=== PATIENT | female | born 1950 | race Two or more races ===

== ENCOUNTER 2022-01-04 21:01 | Observation (INO) | payer MEDICAID ==
[~2022-01-04] VITALS: Ht 170.2 cm; Wt 131.5 kg
--- NOTE | 2022-01-04 21:04 | NUR ---
ERMD AT BEDSIDE
--- NOTE | 2022-01-04 21:04 | NUR ---
PT BIBA AND TO BED AT THIS TIME
[2022-01-04 21:08] VITALS: BP 196/85
[2022-01-04 21:33] LABS: BASOPHILS % (AUTO) 0.5 % (0.0-2.0); EOSINOPHILS # (AUTO) 0.2 K/uL (0-0.4); EOSINOPHILS % (AUTO) 2.1 % (0.0-4.0); HEMOGLOBIN 12.5 g/dL (12.0-16.0); LYMPHOCYTES # (AUTO) 4.5 K/uL (2.5-16.5); LYMPHOCYTES % (AUTO) 54.1 % (20.5-51.1); MEAN CORPUSCULAR HEMOGLOBIN 27 pg (27-31); MEAN CORPUSCULAR HGB CONC 32 g/dL (33-37); MEAN CORPUSCULAR VOLUME 82.6 fL (80-94); MONOCYTES # (AUTO) 0.8 K/uL (0.8-1.0); MONOCYTES % (AUTO) 9.3 % (1.7-9.3); NEUTROPHILS # (AUTO) 2.8 K/uL (1.8-7.7); PLATELET COUNT (AUTO) 293 K/uL (140-450); RED BLOOD CELL COUNT(AUTO) 4.72 MIL/uL (4.20-5.40); RED CELL DISTRIBUTION WIDTH 14.3 % (11.6-13.7); WHITE BLOOD COUNT (AUTO) 8.3 K/uL (4.8-10.8)
[2022-01-04] MEDS ORDERED: hydrALAZINE 20 MG/ML VIAL IVP ONE (21:40)
[2022-01-04 21:45] LABS: PROTHROMBIN TIME 9.9 secs (10.8-13.4)
[2022-01-04 21:51] LABS: LIPASE 213 U/L (73-393)
[2022-01-04 21:54] LABS: ALBUMIN 3.6 g/dL (3.4-5.0); ANION GAP 13.3 (8-16); ASPARTATE AMINOTRANSFERASE 13 U/L (15-37); CARBON DIOXIDE 30.2 mmol/L (21-32); CHLORIDE 103 mmol/L (98-107); CREATININE 1.1 mg/dL (0.6-1.3); GLUCOSE 193 mg/dL (74-106); POTASSIUM 4.5 mmol/L (3.5-5.1); SODIUM SERUM 142 mmol/L (136-145); TOTAL BILIRUBIN 0.2 mg/dL (0.0-1.0); UREA NITROGEN, BLOOD 19 mg/dL (7-18)
--- NOTE | 2022-01-05 | NUR ---
71 YO F BIBA FOR SOB, CHEST PAIN, WEAKNESS X TODAY. PT HAS ALSO HAS INCREASING SWELLING ON BILAT EXTREMITIES. PT DAUGHTER STATED THAT MOTHER LOOKED BLUE IN THE FACE TODAY WELL. PT HAS EXTENSIVE MEDICAL HX. PT IS AMBULATORY WITH ASSIST ONLY. LEGS AND ARMS ARE EDEMATOUS BUT NO PITTING. PT IS A&OX4 BUT SPEAKS ARMENIAN. PT DAUGHTER STATES THAT MOTHER IS COMPLIANT ON MEDICATION RX:SEE MED REC PMH: HTN, DM2, A FIB, CHF, OBESITY
[2022-01-05 00:04] LABS: APPEARANCE,URINE CLOUDY (CLEAR); BILIRUBIN,URINE NEGATIVE (NEGATIVE); BLOOD, URINE TRACE-I (NEGATIVE); COLOR,URINE YELLOW (YELLOW); LEUKOCYTE ESTERASE ,URINE 3+ (NEGATIVE); NITRITE, URINE POSITIVE (NEGATIVE); PH,URINE 6.5 (5.0-9.0); UGLUCOSE NEGATIVE (NEGATIVE)
[2022-01-05 00:13] LABS: RBC,URINE 20-50 /HPF (0-5); YEAST,URINE Rare /HPF (None Seen)
[2022-01-05] MEDS ORDERED: cefTRIAXone 1,000 MG VIAL ONE (00:50)
--- NOTE | 2022-01-05 01:32 | NUR ---
Patient appears to be resting comfortably in bed. Vital Signs within normal limits. Respirations even and unlabored. 97% RA
[2022-01-05] MEDS ORDERED: SITA50TA3 PO (01:48)
[2022-01-05] MEDS ORDERED: [UNRECOGNIZED DRUG - CODE] PO (01:48)
[2022-01-05] MEDS ORDERED: METF-1139 PO (04:08)
[2022-01-05] MEDS ORDERED: METO50TE2 PO (04:08)
[2022-01-05] MEDS ORDERED: LISI5TAB18 PO (04:16)
[2022-01-05] MEDS ORDERED: METF1TAB5 PO (04:16)
--- NOTE | 2022-01-05 07:41 | NUR ---
Patient appears to be resting comfortably in bed. Vital Signs within normal limits. Respirations even and unlabored.
[2022-01-05] MEDS ORDERED: HYDROcodone/APAP 7.5/325 MG 1 TAB PO PRN (08:30)
[2022-01-05] MEDS ORDERED: ZOLPIDEM 5 MG TAB PO PRN (08:30)
[2022-01-05] MEDS ORDERED: ONDANSETRON 4 MG/2 ML VIAL IM/IVP PRN (08:30)
[2022-01-05] MEDS ORDERED: ACETAMINOPHEN 325 MG TAB PO PRN (08:30)
[2022-01-05] MEDS ORDERED: POTASSIUM CHLORIDE 10 MEQ TABER PO PRN (08:30)
[2022-01-05] MEDS ORDERED: DOCUSATE SODIUM 100 MG GELCAP PO PRN (08:30)
[2022-01-05] MEDS ORDERED: guaiFENesin DM 200/20 MG-10 ML 10 ML UDC PO PRN (08:30)
[2022-01-05] MEDS ORDERED: DEXTROSE 50% 50 ML SYR IVP PRN (08:35)
[2022-01-05] MEDS ORDERED: hydrALAZINE 20 MG/ML VIAL IVP PRN (08:35)
[2022-01-05] MEDS ORDERED: lisinopriL 5 MG TAB PO SCH (09:00)
[2022-01-05] MEDS ORDERED: METOPROLOL SUCCINATE 50 MG TABER PO SCH (09:00)
--- NOTE | 2022-01-05 09:06 | NUR ---
pt refusing blood draw at this time
[2022-01-05] MEDS: BLOOD GLUCOSE MONITORING 1 DEV DEV FS SCH ×3 (11:34→21:00)
[2022-01-05] MEDS: INSULIN LISPRO SLIDING SCALE 100 UNITS/ML VIAL SUBQ PRN ×2 (11:48→22:59)
--- NOTE | 2022-01-05 14:06 | NUR ---
PATIENT HAS BEEN SCREENED AND CATEGORIZED MODERATE NUTRITION RISK. PATIENT WILL BE SEEN WITHIN 3-5 DAYS OF ADMISSION. / [address]
--- NOTE | 2022-01-05 15:10 | NUR ---
REPORT RECIEVED FROM CARRIE CHEEMA
--- NOTE | 2022-01-05 15:34 | NUR ---
WHEELCHAIR PT TO BATHROOM. AMBULATE WITH ASSIST
--- NOTE | 2022-01-05 16:15 | NUR ---
ACCU CHECK 113
--- NOTE | 2022-01-05 17:04 | NUR ---
PENDING BED STATUS FOR TELE. PT IS ANXIOUS ABOUT GETTING TO A ROOM. PT IS ON BEDSIDE ELEMENTARY SECRETARY. STATES BEING SOB . SP02 98%RA. HOB ELEVATED. NO DISTRESS NOTED. BATHROOM PRIEGLEVES WITH ASSIST. MILD WEAKNESS. UPPER AND LOWER EXT EDEMATOUS. NON PITTING. HX OF CHF AFIB HTN. DENIES CP. PT IS A&OX4 SPEAKS URDU AND LIMITED PALAUAN. BED AT LOWEST POSITION. SIDE RAILS UP X2
--- NOTE | 2022-01-05 18:30 | NUR ---
P.T. NOTES P.T. EVAL COMPLETED; REFER TO EVAL FOR DETAILS.
--- NOTE | 2022-01-05 19:26 | NUR ---
Pt report given to Alvina ROQUE. Transfer of care at this time.
--- NOTE | 2022-01-05 20:05 | NUR ---
PATIENT WAS BROUGHT TO MST UNIT FROM ER VIA GURNEY AAOX4. NO SOB NOTED. BREATHING REGULAR UNLABORED ON ROOM AIR. ABLE TO AMBULATE WITH ASSIST TO HER BED. IV ACCESS ON THE LEFT FOREARM INTACT AND PATENT. ALL SAFETY PRECAUTIONS ARE IN PLACE. WHEELS OF BED LOCKED. ORIENTED TO ROOM, CALL LIGHT, STAFF. MRSA NARES SCREENING DONE. CALL LIGHT WITHIN REACH. WILL CONTINUE TO MONITOR PT.
--- NOTE | 2022-01-05 21:00 | NUR ---
BLOOD SUGAR WAS 155. ADMINISTERED 2 UNITS HUMALOG ORDERED PER SLIDING SCALE.
--- NOTE | 2022-01-05 22:50 | NUR ---
CHECKED ON PATIENT, RESTING COMFORTABLY IN BED. NO COMPLAINTS OF PAIN AT THIS TIME.
[2022-01-05] MEDS: carvediloL 12.5 MG TAB PO SCH (22:52)
[2022-01-05] MEDS: lisinopriL 10 MG TAB PO SCH (22:53)
[2022-01-06] VITALS: BP 148/67
--- NOTE | 2022-01-06 03:05 | NUR ---
PATIENT SLEEPING IN BED. BREATHING NORMAL. CHEST RISE AND FALL SYMMETRICALLY. CALL LIGHT WITHIN REACH.
[2022-01-06 04:00] VITALS: BP 134/50
[2022-01-06] MEDS: BLOOD GLUCOSE MONITORING 1 DEV DEV FS SCH ×4 (06:49→21:08)
--- NOTE | 2022-01-06 06:50 | NUR ---
BLOOD SUGAR WAS 141, NO INSULIN COVERAGE NEEDED.
--- NOTE | 2022-01-06 07:35 | NUR ---
PATIENT STABLE. ENDORSED TO MORNING SHIFT NURSE FOR CONTINUITY OF CARE.
--- NOTE | 2022-01-06 07:36 | NUR ---
RECEIVED REPORT FROM PARLOR MAID NURSE FOR CONTINUITY OF CARE. PT AWAKE, SITTING IN BED. RESPIRATIONS EVEN AND UNLABORED ON RA. NO DISTRESS NOTED. ON TELE MONITOR. SKIN IS INTACT, WARM AND DRY TO TOUCH. IV SITE AT [facility] 22G, SL. CALL LIGHT WITHIN REACH. SAFETY PRECAUTIONS IN PLACE. WILL CONTINUE TO MONITOR.
[2022-01-06 08:00] VITALS: BP 146/55
--- NOTE | 2022-01-06 08:00 | NUR ---
Patient's Plan of Care was discussed and reviewed with MYA: [id number]
[2022-01-06 09:38] LABS: BARBITURATE, URINE NEGATIVE ng/ml (NEG <=200); BENZODIAZEPINE, URINE NEGATIVE ng/mL (NEG <=200); CANNABINOID, URINE NEGATIVE ng/mL (NEG <=50); COCAINE, URINE NEGATIVE ng/mL (NEG <=300); OPIATE, URINE POSITIVE ng/mL (NEG <=2000); PHENCYCLIDINE SCREEN,URINE NEGATIVE ng/mL (NEG <=25)
[2022-01-06] MEDS: carvediloL 12.5 MG TAB PO SCH ×2 (09:38→21:10)
[2022-01-06] MEDS: lisinopriL 10 MG TAB PO SCH (09:38)
--- NOTE | 2022-01-06 09:46 | NUR ---
DAUGHTER CAME, AT BEDSIDE, UPSET AND WANTS TO SPEAK TO THE HOSPITAL MGR SPECIFICALLY MENTIONED MELYSSA. ANOTHER RN ELIS CAME TO HELP AND SPOKE TO THE DAUGHTER. PER DAUGHTER, HER MOM WAS WET AND PEED ON HER GOWN AND CLOTHES LAST NIGHT, URINE ALL OVER THE FLOOR, KEPT ON CALLING THE CALL LIGHT LAST NIGHT BUT NO ONE RESPONDING TO HER MOM. PT NURSE CALLED DR HICKEY TO INFORM MD THAT THE DAUGHTER IS UPSET, WANTS AN UPDATE ABOUT HER MOM, THAT SHE WANTS TO TRANSFER HER MOM TO ANOTHER HOSPITAL AND THAT SHE WANTS TO TALK TO THE MD. DR HICKEY SAID HE'LL BE HERE IN AN HR. DAUGHTER MADE AWARE. HOUSE SUP MELYSSA, CAME TO SPEAK TO THE DAUGHTER WELL. ADMINISTER SCHEDULED MORNING MEDS. PT TEACHING ABOUT MEDS GIVEN. PT VERBALIZED UNDERSTANDING.
[2022-01-06] MEDS: LEVOFLOXACIN 500 MG/D5W PREMIX 100 ML IV SCH (10:04)
--- NOTE | 2022-01-06 10:05 | NUR ---
IV ABX ADMINISTERED BY DENI CASTILLO. NO ADVERSE REACTION NOTED. WILL CONTINUE TO MONITOR.
--- NOTE | 2022-01-06 11:10 | NUR ---
PT SEEN AND CHECKED BY DR HICKEY. SPOKE TO DAUGHTER AND DISCUSSED POC.
[2022-01-06] MEDS: INSULIN LISPRO SLIDING SCALE 100 UNITS/ML VIAL SUBQ PRN ×2 (11:52→21:06)
--- NOTE | 2022-01-06 11:57 | NUR ---
SLIDING SCALE INSULIN ADMINISTERED FOR BS 199. PT NOW ON PUREWICK. PT COMFORTABLY LYING IN BED. NO COMPLAINT OF PAIN. WITH DAUGHTER AT BEDSIDE. CALL LIGHT WITHIN REACH. SAFETY PRECAUTIONS IN PLACE. WILL CONTINUE TO MONITOR.
[2022-01-06 12:00] VITALS: BP 142/60
--- NOTE | 2022-01-06 13:48 | NUR ---
GOT A ONE-TIME APPROVAL FROM [facility], PT CAN HAVE TWO VISITOR AT A TIME FOR 10 MINS PER DAUGHTER'S REQUEST. INFORMED DAUGHTER THAT IT IS A ONE-TIME APPROVAL AND CAN NEVER HAPPEN AGAIN, DAUGHTER VERBALIZED UNDERSTANDING.
[2022-01-06 16:00] VITALS: BP 141/65
--- NOTE | 2022-01-06 16:58 | NUR ---
BLOOD GLUCOSE 138. NO INSULIN COVERAGE GIVEN. WILL CONTINUE TO MONITOR.
--- NOTE | 2022-01-06 18:22 | NUR ---
DID ROUNDS. PT SITTING IN BED, EATING DINNER. FAMILY MEMBER AT BEDSIDE. NO DISTRESS NOTED. PT REMAINED CLEAN AND DRY ALL THROUGHOUT SHIFT. SAFETY PRECAUTIONS IN PLACE. WILL CONTINUE TO MONITOR.
--- NOTE | 2022-01-06 19:41 | NUR ---
ENDORSED PT TO TAMPER OPERATOR NURSE FOR CONTINUITY OF CARE. ALL NEEDS MET THROUGHOUT SHIFT. PT IS STABLE.
--- NOTE | 2022-01-06 19:42 | NUR ---
RECEIVED BEDSIDE REPORT FROM AM NURSE. PATIENT IS IN THE RESTROOM. DAUGHTER AT BEDSIDE. ASKED DAUGHTER TO REMIND THE PATIENT TO USE THE CALL LIGHT WHEN PT NEEDS ASSISTANCE.
[2022-01-06 20:00] VITALS: BP 140/68
--- NOTE | 2022-01-06 21:08 | NUR ---
BLOOD SUGAR WAS 210, ADMINISTERED HUMALOG INSULIN ORDERED PER SLIDING SCALE.
[2022-01-06] MEDS: LOSARTAN 25 MG TAB PO SCH (21:10)
--- NOTE | 2022-01-06 21:10 | NUR ---
ADMINISTERED ALL 2100 MEDICATIONS PER MD ORDER. TOLERATED WELL.
--- NOTE | 2022-01-06 23:55 | NUR ---
PATIENT SLEEPING. NO S/S OF RESPIRATORY DISTRESS. BREATHING NORMAL NON LABORED. CALL LIGHT ON EASY REACH. BED IN LOW POSITION WHEELS LOCKED.
[2022-01-07] VITALS: BP 149/67
[2022-01-07 04:00] VITALS: BP 156/77
--- NOTE | 2022-01-07 04:15 | NUR ---
V/S TAKEN AND RECORDED. PATIENT IS AWAKE AND WENT BACK TO SLEEP. URINE CANISTER CHANGED.
--- NOTE | 2022-01-07 05:45 | NUR ---
PATIENT REFUSED BLOOD DRAW PER [place] FROM THE LAB.
--- NOTE | 2022-01-07 06:35 | NUR ---
BLOOD SUGAR WAS 149. NO INSULIN COVERAGE NEEDED.
[2022-01-07] MEDS: BLOOD GLUCOSE MONITORING 1 DEV DEV FS SCH ×3 (06:46→16:18)
--- NOTE | 2022-01-07 07:13 | NUR ---
ENDORSED PATIENT TO MORNING NURSE FOR CONTINUITY OF CARE. PATIENT IN STABLE CONDITION.
--- NOTE | 2022-01-07 07:14 | NUR ---
RECEIVED REPORT FROM CPA TAX NURSE FOR CONTINUITY OF CARE. PT SLEEPING, AROUSABLE BY VERBAL STIMULI AND TOUCH. RESPIRATIONS EVEN AND UNLABORED ON RA. NO DISTRESS NOTED. ON FURNITURE ASSEMBLER AND INSTALLER. SKIN INTACT, WARM AND DRY TO TOUCH. PT ON PUREWICK, SUCTION WORKING WELL. IV SITE AT [facility] [id number], SL. CALL LIGHT WITHIN REACH. SAFETY PRECAUTIONS IN PLACE. WILL CONTINUE TO MONITOR.
[2022-01-07 08:00] VITALS: BP 152/73
[2022-01-07] MEDS: carvediloL 12.5 MG TAB PO SCH (08:48)
[2022-01-07] MEDS: LOSARTAN 25 MG TAB PO SCH (08:48)
[2022-01-07] MEDS: LEVOFLOXACIN 500 MG/D5W PREMIX 100 ML IV SCH (08:50)
--- NOTE | 2022-01-07 08:56 | NUR ---
ADMINISTERED SCHEDULED MORNING MEDS. PT TEACHING ABOUT MEDS GIVEN. PT VERBALIZED UNDERSTANDING. DENI REED ADMINISTERED SCHEDULED IV ABX. NO ADVERSE REACTION NOTED. WILL CONTINUE TO MONITOR.
[2022-01-07] MEDS: INSULIN LISPRO SLIDING SCALE 100 UNITS/ML VIAL SUBQ PRN (11:26)
--- NOTE | 2022-01-07 11:28 | NUR ---
SLIDING SCALE INSULIN ADMINISTERED FOR BS 207.
[2022-01-07] MEDS ORDERED: SULF-954 PO (11:32)
[2022-01-07] MEDS ORDERED: LOSA25TA1 PO (11:36)
[2022-01-07] MEDS ORDERED: CARV12.52 PO (11:36)
[2022-01-07 11:57] VITALS: BP 152/73
[2022-01-07 12:00] VITALS: BP 125/63
--- NOTE | 2022-01-07 14:04 | NUR ---
INFORMED PT ABOUT THE DC ORDER. DAUGHTER COMING AT 1430 TO PICK-UP PT. LEFT PT COMFORTABLY IN BED. NO COMPLAINT OF PAIN. NO DISTRESS NOTED. SAFETY PRECAUTIONS IN PLACE.
--- NOTE | 2022-01-07 16:18 | NUR ---
BLOOD SUGAR CHECK DONE. BS 133. NO INSULIN COVERAGE GIVEN.
--- NOTE | 2022-01-07 16:25 | NUR ---
PT DC HOME. PT WHEELED OUT BY DIRECTOR OF CONSUMER AFFAIRS OUT VIA WHEELCHAIR WITH DAUGHTER. DC PAPERS DISCUSSED WITH THE PT AND DAUGHTER, VERBALIZED UNDERSTANDING. REMOVED IV CATHETER INTACT. REMOVED ID WRIST BAND. ALL BELONGINGS TAKEN UPON DC. PT IS STABLE.
--- NOTE | 2022-01-08 13:57 | NUR ---
DC PLANNING: ORDERED RECEIVED FOR HOME HEALTH P.T., ORDER AND CLINICAL PACKET FAXED TO [employer] TO ARRANGE. CM WILL FOLLOW.
== END 2022-01-07 16:23 | disposition home or self-care (01) ==
LOC: MED 21:01 → MTU 01-05 02:52
PROVIDERS: ADMIT Student in an Organized Health Care Education/Training Program; ATTEND Student in an Organized Health Care Education/Training Program
DX: R07.89 Other chest pain (principal); Z20.822 Contact with and (suspected) exposure to COVID-19; N39.0 Urinary tract infection, site not specified; B96.20 Unspecified Escherichia coli [E. coli] as the cause of diseases classified elsewhere; I16.0 Hypertensive urgency; K21.9 Gastro-esophageal reflux disease without esophagitis; E11.9 Type 2 diabetes mellitus without complications; I10 Essential (primary) hypertension; R41.82 Altered mental status, unspecified; I48.91 Unspecified atrial fibrillation; Z79.899 Other long term (current) drug therapy
CPT/HCPCS: 36415; 70450; 71045; 80053; 80305; 81001; 82948; 83690; 83880; 84484; 85025; 85379; 85610; 85730; 87081; 87086; 87426; 93005; 96365; 96366; 96367; 96372; 96375; 97112; 97116; 97162; 99285; G0378; J0360; J0696; J1815; J1956